=== PATIENT | male | born 1995 | race American Indian/Alaskan Native ===

== ENCOUNTER 2018-11-12 15:22 | Emergency (ER) | payer OTHER ==
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
[2018-11-12] MEDS ORDERED: IBUPROFEN PO ONE (19:26)
[2018-11-12 20:22] VITALS: BP 108/71
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
== END 2018-11-12 21:15 | disposition home or self-care (01) ==
LOC: ED 15:22
DX: S29.012A Strain of muscle and tendon of back wall of thorax, initial encounter (principal); M79.605 Pain in left leg; M79.604 Pain in right leg; V49.59XA Passenger injured in collision with other motor vehicles in traffic accident, initial encounter; Y93.89 Activity, other specified; Y92.488 Other paved roadways as the place of occurrence of the external cause; Y99.8 Other external cause status
CPT/HCPCS: 72070; 99283